=== PATIENT | female | born 1935 | race Caucasian/White ===

== ENCOUNTER 2017-09-09 06:05 | Day surgery (SDC) | payer OTHER ==
[~2017-09-09 06:05] MED LIST: NEURONTIN300 MG; SYNTHROID50 MCG; ZESTRIL20 MG; ZOCOR20 MG
== END 2017-09-09 14:05 | disposition home or self-care (01) ==
LOC: CIR.AMB 06:05
DX: M65.331 Trigger finger, right middle finger (principal); R22.31 Localized swelling, mass and lump, right upper limb

== ENCOUNTER 2018-05-19 08:51 | Day surgery (SDC) | payer OTHER | END 2018-05-19 15:00 | disposition home or self-care (01) | LOC: AMB-ENDOS 08:51 | DX: K64.8 Other hemorrhoids (principal); R19.4 Change in bowel habit ==